=== PATIENT | male | born 1940 | race Caucasian/White ===

== ENCOUNTER 2019-03-07 09:12 | Inpatient (IN) ==
[2019-03-07 09:56] LABS: BASO# 0.05 X1000 (0.0-0.2); BASO% 0.1 % (0.0-0.8); EOS# 0.01 X1000 (0.0-0.7); HEMOGLOBIN 18.5 g/dL (14.0-18.0); IMM GRAN# 0.12 X1000 (0.0-0.04); IMM GRAN% 0.3 % (0.0-0.5); LYMPH# 24.32 X1000 (1.2-3.4); MCV 93.8 FL (81-99); MONO# 1.62 X1000 (0.11-0.59); MONO% 4.5 % (1.7-9.3); MPV 10.6 FL (7.4-10.4); NEUT# 9.63 X1000 (1.4-6.5); NEUT% 27.1 % (42.2-75.2); PLT 283 X1000 (130-400); RBC 5.97 XMIL (4.7-6.1); RDW 14.5 % (11.5-14.5); WBC 35.75 X1000 (4.8-10.8)
[2019-03-07 10:38] LABS: BANDS 1 % (0-1); LYMPHS 76 % (21-51); MONO 2 % (1-9); SEGS 21 % (42-75)
[2019-03-07 10:49] LABS: INR 1.03; PROTIME 13.6 Seconds (11.0-16.0)
[2019-03-07 10:50] LABS: PTT 25.6 Seconds (22.3-41.8)
[2019-03-07 10:53] LABS: ALB/GLOB RATIO 1.6; ALBUMIN 4.4 g/dL (3.5-5.0); CALCIUM 10.4 mg/dL (8.8-10.2); CREATININE 2.5 mg/dL (0.7-1.2); POTASSIUM 4.4 mmol/L (3.5-5.1); TOTAL BILIRUBIN 0.54 mg/dL (0.20-1.00); TOTAL PROTEIN 7.1 g/dL (6.3-8.3)
[2019-03-07] MEDS ORDERED: NS 1,000 ML IV ONE ×2 (10:58→12:06)
[2019-03-07] MEDS ORDERED: ZOFRAN IV ONE (10:59)
--- NOTE | 2019-03-07 11:40 | Diag Imaging Result Doc PS360 ---
CT ABDOMEN/PELVIS W/O CONTRAST - 03/07/2019 INDICATION: Abdominal Pain and Constipation COMPARISON: None FINDINGS: There is mild interstitial fibrosis in the peripheral lung bases. No infiltrates. Heart size is normal with no pericardial effusion. There is severe fluid distention of the stomach and much of the proximal small bowel. The distal small bowel is completely collapsed. There is a small amount of stool in the colon but the colon is otherwise completely collapsed. There is significant small bowel lateral to the left colon which may suggest an internal hernia. However the transition point of the bowel obstruction is not clear. Probably the transition point stone in the pelvis. No free air or free fluid. There has been previous prostate resection. There are also surgical suture lines of the rectum. Urinary bladder and rectum are normal. There is a small left renal cyst. There is a soft tissue density nodule left adrenal gland measuring 1.5 cm. Otherwise abdominal organs are normal. There is moderate dextro scoliosis of the spine. There are moderate degenerative changes of the spine. No acute or suspicious bony lesion. IMPRESSION: 1. High-grade small bowel obstruction distally, likely in the pelvis. 2. Abnormal position of small bowel loops in the lateral left abdomen. There may be an internal hernia here. Surgical consultation is recommended. 3. Small nonspecific left adrenal gland nodule of doubtful significance. This exam was performed using automated exposure control, adjustment of mA or kV according to patient size, and/or use of iterative reconstruction technique Electronically signed by Preet Hanna 03/07/2019 11:38 AM
[2019-03-07] MEDS ORDERED: CIPRO 400 MG/D5W 400 MG/200 ML IVPB IV ONE (12:04)
--- NOTE | 2019-03-07 12:09 | PROVIDER DOCUMENTATION ---
This chart was entered by Shanon Cabrera Scribe, acting as scribe for Shubham Rivas MD. HPI-General Adult - General Chief Complaint: Abdominal Pain Stated Complaint: ABD PAIN,VOMITING,POSS DEHYDRATED,CONSTIPATED Time Seen by Provider: 03/07/19 09:57 Source: patient, family Allergies/Adverse Reactions: Patient Allergies Allergy/AdvReac Type Severity Reaction Status Date / Time lorazepam [From Ativan] Allergy Unknown Verified 03/07/19 11:41 Penicillins Allergy RASH Verified 03/07/19 11:41 - History of Present Illness -Gen Adult Nature of Presenting Problems: Patient is an 78 y/o male presenting to the ED today c/o abdominal pain, vomiting, and constipation. Patient reports onset of abdominal pain last Thursday night. Patient reports abdominal pain persisted and on Thursday he saw his PCP who he states gave him "a bunch of medicines". Patient reports he was diagnosed with H. pylori at that time. Patient reports on Thursday he also had onset of acid reflux. Patient states on Thursday he began to experience vomiting. Patient reports his last bowel movement was on Thursday so he used an enema on Thursday and Thursday with minimal output. Patient states he has continued to have vomiting whenever he tries to eat and notes he has been having coffee ground emesis. Patient reports his abdominal pain is improved at this time, but he continues to experience constipation, vomiting, and acid reflux. Patient reports he last lost 5-6 lbs in the last week. 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 Patient had a peptic ulcer in 1962 but otherwise denies PUD. Patient reports his last colonoscopy was within the last 2 years and was normal. Patient denies history of constipation but states he has had intermittent diarrhea. Patient reports in 2008, his colon ruptured and he had a colostomy which was shortly after reversed. Patient reports he also has chronic leukemia. Patient reports having multiple prior hernia repairs. Patient denies fever, SOB, or blood in stool. Patient denies all other signs/symptoms. Location of Pain/Injury: reports: abdomen Pain Radiation: reports: no radiation Quality of Pain: reports: fullness Onset/Duration: reports: 6 days ago Timing: reports: improving Modifying Factors: worse with: eating Associated Symptoms: reports: constipation, heartburn, vomiting. denies: diarrhea, fever/chills, shortness of breath Similar Symptoms Previously?: No Recently seen or treated by another doctor?: Yes (Tx by PCP Thursday) Review of Systems - Adult - REVIEW OF SYSTEMS - ADULT Constitutional: denies: fever Eyes: reports: no symptoms reported. denies: eye pain Ears, Nose, Mouth & Throat: reports: no symptoms reported. denies: throat pain Cardiovascular: reports: no symptoms reported. denies: chest pain Respiratory: reports: no symptoms reported. denies: shortness of breath Gastrointestinal: reports: abdominal pain, hematemesis, constipation, frequent heartburn, nausea, vomiting. denies: diarrhea, rectal bleeding Genitourinary: reports: no symptoms reported Musculoskeletal: reports: no symptoms reported Integumentary: reports: no symptoms reported Neurological: reports: no symptoms reported. denies: headache/migraines Psychiatric: reports: no symptoms reported. denies: alcohol/drug dependence Endocrine: reports: no symptoms reported Hematologic/Lymphatic: reports: no symptoms reported, other (Leukemia) Allergic/Immunologic: reports: no symptoms reported Past History - Adult - PAST MEDICAL HISTORY-ADULT Review of Records: reports: Old Records Reviewed (no records noted) Major Childhood Illnesses: reports: denies history Cardiovascular: reports: denies history Respiratory: reports: denies history Gastrointestinal: reports: other (peptic ulcer - 1962; colon ruptur 2008) Genitourinary: reports: denies history Musculoskeletal: reports: denies history Neurological: reports: denies history Psychiatric: reports: denies history Endocrine/Immune: reports: Leukemia Other Conditions: reports: denies history - PRIOR SURGERIES/PROCEDURES Surgical/Procedure History: reports: hernia repair, bowel surgery (colostomy with later reversal) - FAMILY HISTORY Family History: reviewed, not pertinent - SOCIAL HISTORY Smoking: denies Substance Use: none/never Alcohol Use Frequency: never Physical Exam-General - PHYSICAL EXAM-ADULT Initial Vital Signs Reviewed: Yes - CONSTITUTIONAL General Appearance: appears well, alert, no apparent distress - EYES Eyes: negative: conjuctival exudate, sclera injected, scleral icterus, subconjunctival hemorrhage - HEAD, EARS, NOSE, MOUTH & THROAT HENMT: normocephalic/atraumatic, moist mucous membranes, pharynx normal - NECK Neck: non-tender, supple, normal inspection - RESPIRATORY Respiratory: normal breath sounds, no respiratory distress, no accessory muscle use - CARDIOVASCULAR Cardiovascular: no edema, no gallop, no murmur, tachycardia - GASTROINTESTINAL (ABDOMEN) Abdominal Exam: abnormal bowel sounds (hypoactive), rigid, tenderness (RLQ) - MUSCULOSKELETAL Extremity: normal range of motion (LE), normal inspection, no pedal edema - SKIN Integumentary: normal color, warm/dry - NEUROLOGIC Neurologic: grossly normal - PSYCHIATRIC Psych/Mental Status: normal mood/affect, normal thought content, normal thought process Progress - PLAN OF CARE/RESULTS Progress/Plan/Lab Results: Vital Signs - 8 hr 03/07/19 09:20 Temperature 97.5 F L Pulse Rate 111 H Respiratory Rate 18 Blood Pressure 103/70 O2 Sat by Pulse Oximetry 97 Laboratory Results - last 24 hr 03/07/19 09:39 WBC 35.75 H RBC 5.97 Hgb 18.5 H Hct 56.0 H MCV 93.8 MCH 31.0 MCHC 33.0 RDW Std Deviation 14.5 Plt Count 283 MPV 10.6 H Immature Gran % (Auto) 0.3 Neut % (Auto) 27.1 L Lymph % (Auto) 68.0 H [place] % (Auto) 4.5 Eos % (Auto) 0.0 Baso % (Auto) 0.1 Immature Gran # (Auto) 0.12 H Neut # (Auto) 9.63 H Lymph # (Auto) 24.32 H [place] # (Auto) 1.62 H Eos # (Auto) 0.01 Baso # (Auto) 0.05 Orders Category Date Time Status NPO Diet 03/07/19 09:27 Active CBC WITH DIFF [HEME] Stat Lab 03/07/19 09:39 Results COMPREHENSIVE METABOLIC PANEL [CHEM] Stat Lab 03/07/19 09:39 Received LIPASE [CHEM] Stat Lab 03/07/19 09:39 Received URINALYSIS [URINALYSIS] Stat Lab 03/07/19 09:28 Uncollected Abd Pain/OB <20 weeks Stat Oth 03/07/19 09:27 Ordered Result Diagrams: 03/07/19 09:39 03/07/19 09:39 - REASSESSMENT Reassessment #1 Status: other (Discussed SBO with patient and family. Discussed with surgery who would like the pt admitted to hospitalist team and he will see the patient. Disucssed case with the hospitalist team who has accepted the patient.) - CT/MRI 1 CT Study: Abdomen Impression: See EMR Report (CT ABDOMEN/PELVIS W/O CONTRAST - 03/07/2019 INDICATION: Abdominal Pain and Constipation COMPARISON: None FINDINGS: There is mild interstitial fibrosis in the peripheral lung bases. No infiltrates. Heart size is normal with no pericardial effusion. There is severe fluid distention of the stomach and much of the proximal small bowel. The distal small bowel is completely collapsed. There is a small amount of stool in the colon bu t the colon is otherwise completely collapsed. There is significant small bowel lateral to the left colon which may suggest an internal hernia. However the transition point of the bowel obstruction is not clear. Probably the transition point stone in the pelvis. No free air or free fluid. There has been previous prostate resection. There are also surgical suture lines of the rectum. Urinary bladder and rectum are normal. There is a small left renal cyst. There is a soft tissue density nodule left adrenal gland measuring 1.5 cm. Otherwise abdominal organs are normal. There is moderate dextro scoliosis of the spine. There are moderate degenerative changes of the spine. No acute or suspicious bony lesion. IMPRESSION: 1. High-grade small bowel obstruction distally, likely in the pelvis. 2. Abnormal position of small bowel loops in the lateral left abdomen. There may be an internal hernia here. Surgical consultation is recommended. 3. Small nonspecific left adrenal gland nodule of doubtful significance. This exam was performed using automated exposure control, adjustment of mA or kV according to patient size, and/or use of iterative reconstruction technique Electronically signed by Preet Hanna 03/07/2019 11:38 AM 03/07/19 1138 Interpreting Physician: Preet Hanna MD Dictated Date/Time: 03/07/19 1134 cc: Shubham Rivas MD; Yogesh Weber MD) Departure - Departure Date of Disposition Decision: 03/07/19 Time of Disposition Decision: 12:07 DIAGNOSIS: Small bowel obstruction Disposition: ADMITTED INPATIENT 09 Certified Medical Emergency: Emergent Condition: Fair Referrals and Follow-Ups: Yogesh Weber MD [Primary Care Provider] - - Critical Care Note This patient required my direct & personal management of CC.: No Attestation - Physician/ EDWAR Attestation Patient care was provided by Advanced Practice Provider:: No The physician spent face to face time with patient:: Yes Advanced Practice Provider documentation review:: Supervising physician onsite and consulted in the evaluation and care of this patient. The physician did have a face to face encounter with the patient. This chart was documented by the indicated scribe, (Shanon Cabrera Scribe) and accurately reflects the services I performed and decisions made by me, Shubham Rivas MD, as attested by the provider's signature.
--- NOTE | 2019-03-07 12:31 | Diag Imaging Result Doc PS360 ---
CHEST-1 VIEW - 03/07/2019 INDICATION: sepsis protocol with c/o diarrhea COMPARISON: None FINDINGS: The lungs are normally expanded and clear. Heart size and mediastinal contours are normal. No pneumothorax or pleural effusion. IMPRESSION: Negative exam. Electronically signed by Preet Hanna 03/07/2019 12:29 PM
[2019-03-07] MEDS ORDERED: PROTONIX IV SCH (12:45)
[2019-03-07] MEDS ORDERED: NS 1,000 ML IV SCH ×2 (12:45→16:00)
[2019-03-07] MEDS ORDERED: SODIUM CHLORIDE 0.9% INJ SCH (12:45)
--- NOTE | 2019-03-07 13:36 | HISTORY AND PHYSICAL ---
PRIMARY CARE PHYSICIAN: Dr. Weber. CHIEF COMPLAINT: Abdominal pain, constipation and vomiting. HISTORY OF PRESENTING ILLNESS: This is an 78-year-old male who presents to [facility] with complaints of abdominal pain, vomiting, and constipation. States the abdominal pain began last Thursday night and was persistent and on Thursday he went to see his primary care physician who gave him "a bunch of medicines" states he was also diagnosed with H pylori at that time, had a sudden onset of acid reflux and then on Thursday began experiencing vomiting. States his last bowel movement was on Thursday and he used an enema on Thursday and Thursday with minimal output. Continued to vomit whenever he would eat and also noted some coffee-grounds emesis. States at this time his abdominal pain is improved but continues to experience constipation, vomiting and acid reflux. Reports that he has lost 5 to 6 pounds in the last week. He has had a history of leukemia. His last colonoscopy was about 2 years ago and it was normal. He denied any history of constipation but states he has had intermittent diarrhea. States that in 2008 his colon ruptured and he had to have a colostomy placed but was shortly reversed. His workup in the emergency room showed his white blood cell count to be 35.75, his BUN 45 with a creatinine of 2.5 no previous to compare, lipase of 279, plasma lactate of 5.4. We did a CT of the abdomen and pelvis that showed a high- grade small bowel obstruction distally likely in the pelvis, some abnormal position of the small bowel loops in the lateral left abdomen so he will be admitted for further evaluation and treatment. PAST MEDICAL HISTORY: Of peptic ulcers and leukemia. PAST SURGICAL HISTORY: Hernia repair and a colostomy placement and reversal. FAMILY HISTORY: Reviewed and noncontributory. SOCIAL HISTORY: Currently lives with family. Denies any tobacco, alcohol or illicit drug use. ALLERGIES: To lorazepam and penicillin. HOME MEDICATIONS: None listed at this time. LABORATORY DATA: Showed a white blood cell count of 35.75, hemoglobin 18.5, hematocrit 56, platelets 283,000, PT and INR of 13.6 and 1.03. Sodium 139, potassium 4.4, chloride 86, CO2 32, BUN of 45, creatinine 2.5, glucose 172. Cardiac enzyme was negative. Lipase was 279. Plasma lactate of 5.4. CT of the abdomen and pelvis showed a high-grade small bowel obstruction distally likely in the pelvis, abnormal position of small bowel loops in the lateral left abdomen, there may be an internal hernia here and surgical consultation is recommended. Chest x-ray is pending. REVIEW OF SYSTEMS: He denied any fever, chills, blurred vision, dizziness, chest pain, coughing, shortness of breath. He has had nausea, vomiting, diarrhea, constipation and abdominal pain. PHYSICAL EXAMINATION: On arrival he had a temperature of 97.5 degrees, pulse 111, respirations 18, blood pressure 103/70, saturating 97% on room air. GENERAL: This is a 78-year-old male who is lying in the bed and answers questions appropriately. HEENT: Normocephalic, atraumatic. Normal ENT inspection. Oropharynx and nares are clear. Pupils are equal, round, reactive to light, accommodation. Extraocular movements are intact. NECK: Normal inspection, normal range of motion. LUNGS: Clear to auscultation bilaterally with equal lung expansion and chest wall movement. HEART: With regular rate and rhythm. No murmurs, rubs, or gallops. ABDOMEN: Firm, distended. Bowel sounds are hypoactive x4 quadrants. MUSCULOSKELETAL: He had 5/5 strength x4 extremities. NEUROLOGICAL: The cranial nerves 2-12 appear grossly intact. ASSESSMENT: 1. Nausea, vomiting. 2. Small bowel obstruction. 3. Acute kidney injury. 4. Gastroesophageal reflux disease. PLAN: He will be admitted to the surgical unit placed on telemetry. We are going to place an NG tube to low intermittent suction, hold NPO, consult Surgery. Will check a urinalysis. Recheck a BMP and a CMP in the a.m. Place him on normal saline at 125 mL an hour, Zofran 4 mg IV q.4 hours p.r.n., morphine 2 mg IV q.3 hours p.r.n., will give him Protonix 40 mg IV q.12 hours and further orders after seen by attending and by websphere commerce consultant. Dictated by MORIS Stanley for Claire Martins MD cc: MORIS Stanley MD Dr. Gillespie I performed a face to face encounter on the patient. I reviewed all labs and imaging on the patient. I agree with the H&P as dictated. MTDD
--- NOTE | 2019-03-07 15:13 | SEPSIS: TISSUE PERFUSION ASSMT ---
Sepsis: Tissue Perfusion Assmt - Physical Exam Assessment Date: 03/07/19 Time Assessment Initialized: 15:15 Vital Signs: Last Vital Signs Temp 98.6 F 03/07/19 14:56 Pulse 68 03/07/19 14:56 Resp 14 03/07/19 14:56 BP 139/89 03/07/19 14:56 Pulse Ox 98 03/07/19 14:56 Height 6 ft 1 in Weight 159 lb Lung Sounds:: lungs clear Heart Sounds:: Regular Peripheral Pulse Evaluation:: radial (R): 2+, radial (L): 2+, dorsalis-pedis (R): 2+, dorsalis-pedis (L): 2+, posterior tibialis (R): 2+, posterior tibialis (L): 2+ Skin Exam:: pink - Impression Impression:: Tissue Perfusion Adequate - Plan Plan:: No Change
--- NOTE | 2019-03-07 16:07 | Diag Imaging Result Doc PS360 ---
EXAM: CHEST-PORTABLE - 03/07/2019 HISTORY: NG tube placement TECHNIQUE: Portable exam for nasogastric tube placement COMPARISON: None. FINDINGS: The tip of the nasogastric tube is at the expected location of the proximal stomach near the gastroesophageal junction. IMPRESSION: Tip of nasogastric tube at proximal stomach. The tube should be advanced several centimeters for more optimal positioning. Electronically signed by Toni Caldera 03/07/2019 4:05 PM
[2019-03-07] MEDS: ZYVOX 600 MG/D5W 600 MG/300 ML IVPB IV SCH (16:09)
[2019-03-07] MEDS: ZOFRAN IV PRN (16:09)
[2019-03-07 17:17] LABS: HEMOGLOBIN A1C 5.5 % (4.8-6.0)
[2019-03-07 17:23] LABS: CREATININE 2.1 mg/dL (0.7-1.2); PHOSPHORUS 2.9 mg/dL (2.7-4.5); POTASSIUM 3.4 mmol/L (3.5-5.1)
[2019-03-07 17:46] LABS: BASO# 0.05 X1000 (0.0-0.2); BASO% 0.2 % (0.0-0.8); EOS# 0.05 X1000 (0.0-0.7); EOS% 0.2 % (0.0-10.0); HEMOGLOBIN 16.4 g/dL (14.0-18.0); IMM GRAN# 0.09 X1000 (0.0-0.04); IMM GRAN% 0.3 % (0.0-0.5); LYMPH# 21.94 X1000 (1.2-3.4); MCH 31.1 PG (27-31); MCHC 33.5 g/dL (33-37); MONO% 4.3 % (1.7-9.3); MPV 10.7 FL (7.4-10.4); NEUT# 8.73 X1000 (1.4-6.5); PLT 222 X1000 (130-400); RBC 5.27 XMIL (4.7-6.1); RDW 14.5 % (11.5-14.5); WBC 32.26 X1000 (4.8-10.8)
[2019-03-07 19:20] LABS: URINE SOURCE CLEAN CATCH
[2019-03-07 19:22] LABS: BILIRUBIN URINE NEGATIVE (NEGATIVE); BLOOD URINE TRACE (NEGATIVE); COLOR ORANGE; GLUCOSE URINE NEGATIVE (NEGATIVE); KETONE URINE TRACE mg/dL (NEGATIVE); LEUKOCYTES URINE NEGATIVE (NEGATIVE); NITRITE URINE NEGATIVE (NEGATIVE); PH URINE 7.5; PROTEIN URINE 100 mg/dL (NEGATIVE); SP GRAVITY URINE 1.029; TURBIDITY URINE HAZY (CLEAR); UROBILINOGEN URINE NORMAL (NORMAL)
[2019-03-07 19:34] LABS: LYMPHS 49 % (21-51); MONO 3 % (1-9); SEGS 48 % (42-75)
[2019-03-07 19:34] LABS: UR EPITHELIAL CELLS >10 /HPF (<10); URINE BACTERIA NEGATIVE /HPF; URINE RBC <10 /HPF (<10); URINE WBC <10 /HPF (<10)
[2019-03-07 19:39] LABS: URINE CASTS GRANULAR PRESENT; URINE SMALL ROUND CELLS RENAL PRESENT
[2019-03-07 19:40] LABS: UR PROT RANDOM 62.6 mg/dL
[2019-03-07 19:44] LABS: UR CREAT RANDOM 323.8 mg/dL (14-26)
[2019-03-07] MEDS ORDERED: POTASSIUM CHLORIDE 20 MEQ/SWI 20 MEQ/100 ML IVPB IV SCH (20:00)
[2019-03-07] MEDS: AZACTAM 0.5 GM in NS 50 ML IV SCH (20:20)
[2019-03-07] MEDS: HEPARIN SUBQ SCH (20:20)
[2019-03-07] MEDS: MORPHINE IV PRN (21:42)
--- NOTE | 2019-03-07 22:42 | GENERAL SURGERY CONSULTATION ---
DATE: 03/07/2019 REQUESTING PHYSICIAN: The hospitalist. REASON FOR CONSULTATION: Bowel obstruction. HISTORY OF PRESENT ILLNESS: An 78-year-old gentleman admitting with abdominal pain who presented to the emergency department with complaints of lack of bowel movement since Thursday the week prior. He has been treated with [id number] medications but had not improved. He says significant past surgical history with multiple abdominal operations. He was seen emergency department initially had a plasma lactate of 5.4. The resuscitation process was undertaken. He had a CT scan that showed high-grade small-bowel obstruction. I was asked to weigh an opinion. The patient has had several L out since they placed his NG tube but is feeling better. PAST MEDICAL HISTORY: Includes multiple hernia repairs, colostomy placement after colon rupture and reversal. PAST MEDICAL HISTORY: Peptic ulcer disease and history of leukemia. FAMILY HISTORY: Reviewed with patient, noncontributory. SOCIAL HISTORY: Current lives family. Denies alcohol, tobacco, or illicit drugs. ALLERGIES: Lorazepam and penicillin. HOME MEDICATIONS: Current MAR reviewed. REVIEW OF SYSTEMS: Full 14 systems reviewed and negative as specified in HPI. PHYSICAL EXAMINATION: Vital Signs: The patient is currently afebrile. His vital signs stable. General: No acute distress. HEENT: Normocephalic, atraumatic. Pupils equal, round, reactive to light. Mucous membranes moist. Oropharynx benign. Neck: Supple. Trachea midline. Cardiovascular: Regular rate and rhythm. Lungs: Grossly clear. Abdomen: Soft. Some hypoactive bowel sounds. No peritoneal signs. Extremities: Moves all extremities. Neurologic: Grossly intact. Skin: No signs of jaundice. Vascular: All extremities perfused. LABORATORY: White blood count 35, hematocrit 56, platelet count 283,000. Remainder of labs reviewed. CT scan independently reviewed and radiology report reviewed. ASSESSMENT AND PLAN: An 78-year-old gentleman with a bowel obstruction. Bowel obstruction. At this time, the patient seems to make some improvement when with the NG tube. Hopefully, this will continue. Hopefully, we can treat him nonoperatively. He has a significant surgical history, so I suspect this is mostly related to adhesions. We will continue to monitor him. cc: Kev Vogel MD
[2019-03-07] MEDS ORDERED: POTASSIUM CHLORIDE 30 MEQ in NS 1,000 ML IV SCH (23:45)
[2019-03-08] MEDS: AZACTAM 0.5 GM in NS 50 ML IV SCH ×3 (04:25→20:47)
[2019-03-08] MEDS: ZYVOX 600 MG/D5W 600 MG/300 ML IVPB IV SCH ×2 (05:03→15:16)
[2019-03-08] MEDS: PROTONIX IV SCH (06:28)
[2019-03-08] MEDS: SODIUM CHLORIDE 0.9% INJ PRN (06:29)
[2019-03-08] MEDS: SYNTHROID IV SCH (06:29)
[2019-03-08] MEDS: SODIUM CHLORIDE 0.9% INJ SCH (06:29)
--- NOTE | 2019-03-08 06:55 | Diag Imaging Result Doc PS360 ---
ABDOMEN FLAT/UPRIGHT - 03/08/2019 INDICATION: obstruction COMPARISON: None FINDINGS: There is a nonobstructive bowel gas pattern. No free air or abdominal calcifications. There are surgical clips and suture lines in the pelvic soft tissues. IMPRESSION: No acute disease. Electronically signed by Preet Hanna 03/08/2019 6:52 AM
[2019-03-08 08:33] LABS: BASO# 0.04 X1000 (0.0-0.2); BASO% 0.1 % (0.0-0.8); EOS# 0.13 X1000 (0.0-0.7); EOS% 0.4 % (0.0-10.0); HEMOGLOBIN 15.6 g/dL (14.0-18.0); IMM GRAN# 0.11 X1000 (0.0-0.04); IMM GRAN% 0.4 % (0.0-0.5); LYMPH# 19.95 X1000 (1.2-3.4); LYMPH% 66.7 % (20.5-51.1); MCH 31.2 PG (27-31); MCHC 32.5 g/dL (33-37); MONO# 1.17 X1000 (0.11-0.59); MONO% 3.9 % (1.7-9.3); MPV 10.9 FL (7.4-10.4); NEUT# 8.51 X1000 (1.4-6.5); NEUT% 28.5 % (42.2-75.2); PLT 200 X1000 (130-400); RDW 14.9 % (11.5-14.5); WBC 29.91 X1000 (4.8-10.8)
[2019-03-08 08:42] LABS: MAGNESIUM 2.6 mg/dL (1.5-2.7); PHOSPHORUS 4.6 mg/dL (2.7-4.5)
[2019-03-08 08:50] LABS: CALCIUM 8.9 mg/dL (8.8-10.2); CREATININE 1.8 mg/dL (0.7-1.2); POTASSIUM 3.6 mmol/L (3.5-5.1)
[2019-03-08 09:00] LABS: BANDS 2 % (0-1); LYMPHS 56 % (21-51); MONO 2 % (1-9); SEGS 34 % (42-75)
[2019-03-08] MEDS: HEPARIN SUBQ SCH ×2 (11:09→20:46)
--- NOTE | 2019-03-08 13:14 | GENERAL SURGERY PROGRESS NOTE ---
DATE: 03/08/2019 SUBJECTIVE: Patient says he is feeling better. He has gotten 2 L off his stomach with the NG tube. OBJECTIVE: Vital Signs: Patient is currently afebrile. His vital signs are stable. General: No acute distress. HEENT: Normocephalic, atraumatic. Pupils equal, round, reactive to light. Mucous membranes moist. Oropharynx benign. Neck: Supple trachea midline. Cardiovascular: Regular rate and rhythm with some mild tachycardia. Lungs: Grossly clear. Abdomen: Soft, nondistended, nontender. Extremities: Moves all extremities. Neurologic: Grossly intact. Skin: No signs of jaundice. Vascular: All extremities perfused. LABORATORY: None this morning. Abdominal film, no official report, but looks like a nonspecific gas pattern to me. ASSESSMENT AND PLAN: 78-year-old with a bowel obstruction: Bowel obstruction. At this time, I think it is improving. We will follow up with the official read from a.m. check of chest x-ray and abdominal film, but at this point, we will keep the nasogastric tube in place until he has definitive return of bowel function. cc: Kev Vogel MD
[2019-03-08] MEDS ORDERED: POTASSIUM CHLORIDE 20 MEQ/SWI 20 MEQ/100 ML IVPB IV SCH (22:00)
[2019-03-08] MEDS: NS 1,000 ML IV SCH (22:11)
[2019-03-08] MEDS: ZOFRAN IV PRN (22:11)
[2019-03-08] MEDS: MORPHINE IV PRN (22:12)
--- NOTE | 2019-03-09 03:52 | PROGRESS NOTE ---
DATE: 03/08/2019 INTERVAL HISTORY: No acute events overnight. His NG tube had put out about 2 L urine yesterday, 1.5 L so far today. He is feeling much better. Denies chest pain, shortness of breath, cough. We had a discussion about etiology of small bowel obstruction, getting him back on intravenous fluids, acute kidney injury. I answered all of his questions. OBJECTIVE: Vital signs: Temperature 98.7 degrees, pulse 99, respiratory rate 16, blood pressure 140/76, saturating 96% on room air. General: No acute distress. HEENT: Oral cavity is moist. Lungs: No wheeze, rhonchi, crackles. Cardiovascular: S1 normal. No murmur or gallop. Abdomen: Soft, nontender. No bowel sounds. He has nasogastric tube under suction. Extremities: No lower extremity edema. Neurologic: He is alert and oriented x3. LABS: Suggestive of persistent leukocytosis. He does have acute kidney injury with fractional excretion of sodium less than 1%. Abdominal x-ray suggests resolution of abdominal small-bowel obstruction. ASSESSMENT AND PLAN: 1. Acute small-bowel obstruction with previous history of colectomy because of colon perforation in 2008. This is likely adhesive small-bowel obstruction. He did have lactic acidosis on presentation. He though improved with nonoperative management. He has not had any bowel sounds or gas at the moment. I will continue him on intravenous fluids, nasogastric tube under suction and intravenous antibiotics. Surgical team on board. 2. Kidney dysfunction, likely acute kidney injury. Fractional excretion of sodium suggests prerenal etiology. His nausea, vomiting, poor oral intake could have contributed to it. Continue intravenous fluids. Follow up with daily BMP. He had burning with IV potassium yesterday, so I will check his potassium tomorrow to see if he would really need IV potassium. I will consider discontinuing Mariano catheter. 3. Leukocytosis. He was diagnosed with chronic lymphocytic leukemia and his baseline WBC count has been in 20,000. His current leukocytosis could be related to his chronic lymphocytic leukemia. However, I would keep him on IV antibiotics since he had high-grade likely suspected mechanical small-bowel obstruction on presentation with lactic acidosis. 4. Recently diagnosed of H. pylori infection. He was supposed to be on pantoprazole, metronidazole, doxycycline, which I will resume once his small-bowel obstruction improves. 5. Left upper extremity chronic Staphylococcus infection. He was at home, supposed to be on levofloxacin and rifampin, which I will eventually resume once his H pylori treatment has been completed. 6. Disposition: I will monitor patient inside the hospital as I await small-bowel obstruction resolution. Plan of care discussed with the patient and his family at bedside. All their questions have been answered. cc: Garry Castanon MD
[2019-03-09] MEDS: AZACTAM 0.5 GM in NS 50 ML IV SCH ×3 (04:17→20:18)
[2019-03-09] MEDS: ZYVOX 600 MG/D5W 600 MG/300 ML IVPB IV SCH ×2 (04:18→17:19)
[2019-03-09] MEDS: PROTONIX IV SCH (06:50)
[2019-03-09] MEDS: SODIUM CHLORIDE 0.9% INJ PRN (06:50)
[2019-03-09] MEDS: SODIUM CHLORIDE 0.9% INJ SCH (06:50)
[2019-03-09] MEDS: SYNTHROID IV SCH (06:51)
[2019-03-09 07:21] LABS: BASO# 0.06 X1000 (0.0-0.2); BASO% 0.2 % (0.0-0.8); EOS# 0.21 X1000 (0.0-0.7); EOS% 0.8 % (0.0-10.0); HEMATOCRIT 51.3 % (42.0-52.0); HEMOGLOBIN 16.4 g/dL (14.0-18.0); IMM GRAN# 0.06 X1000 (0.0-0.04); IMM GRAN% 0.2 % (0.0-0.5); LYMPH# 18.04 X1000 (1.2-3.4); MCH 31.1 PG (27-31); MCV 97.2 FL (81-99); MONO# 1.03 X1000 (0.11-0.59); MONO% 3.9 % (1.7-9.3); MPV 10.4 FL (7.4-10.4); NEUT# 7.11 X1000 (1.4-6.5); NEUT% 26.9 % (42.2-75.2); PLT 192 X1000 (130-400); RBC 5.28 XMIL (4.7-6.1); RDW 14.7 % (11.5-14.5); WBC 26.51 X1000 (4.8-10.8)
[2019-03-09 08:14] LABS: POTASSIUM 3.5 mmol/L (3.5-5.1); SODIUM 141 mmol/L (136-145)
[2019-03-09 08:15] LABS: AGAP 11; BUN 32 mg/dL (8-22); CALCIUM 9.3 mg/dL (8.8-10.2); CHLORIDE 95 mmol/L (98-107); COSMO 290; CREATININE 1.3 mg/dL (0.7-1.2); GLUCOSE 123 mg/dL (70-104); MAGNESIUM 2.5 mg/dL (1.5-2.7); TCO2 35 mmol/L (25-35)
[2019-03-09] MEDS: HEPARIN SUBQ SCH ×2 (09:00→20:18)
--- NOTE | 2019-03-09 10:42 | GENERAL SURGERY PROGRESS NOTE ---
DATE: 03/09/2019 SUBJECTIVE: The patient seems to be doing okay. He had a small bowel movement but he still having significant NG tube output, although he feels better. OBJECTIVE: Vital Signs: Patient is currently afebrile. His vital signs are stable. General: No acute distress. HEENT: Normocephalic, atraumatic. Pupils equal, round, reactive to light. Mucous membranes moist. Oropharynx benign. Neck: Supple. Trachea midline. Cardiovascular: Regular rate and rhythm. Lungs: Grossly clear. Abdomen: Soft, less distended, nontender. Extremities: Moves all extremities. Neurologic: Grossly intact. Skin: No signs of jaundice. Vascular: All extremities perfused. LABORATORY DATA: Reviewed from yesterday. White blood cell count is still elevated to 29. Remainder of labs reviewed. ASSESSMENT AND PLAN: An 78-year-old gentleman with a small-bowel obstruction. Small-bowel obstruction. At this time, it seems to be improving, but his NG tube output still is high. We will keep the NG tube in place. He does have baseline leukemia and I think this is contributing to his leukocytosis, but we will continue to monitor him. cc: Kev Vogel MD
[2019-03-09] MEDS: NS 1,000 ML IV SCH (17:22)
--- NOTE | 2019-03-09 21:47 | PROGRESS NOTE ---
DATE: 03/09/2019 INTERVAL HISTORY: No acute events overnight. SUBJECTIVE: He states he was able to walk up to the end of the hallway and come back. He does not have any nausea or vomiting. His abdominal discomfort is significantly better. He is still not passing gas. Nasogastric tube output has been 2.2 L over last 24 hours and 500 mL during this shift. VITAL SIGNS: Temperature 98 degrees, pulse 94, respiratory rate 18, blood pressure 148/84, saturating 95% in room air. PHYSICAL EXAMINATION: General: Not in acute distress. Oral cavity: Moist. Lungs: Air entry bilaterally equal. No wheezing or crackles. Heart: S1, S2 normal. No murmur or gallop. Abdomen: Soft, nontender. No bowel sounds. Extremities: No lower extremity edema. Neurologic: He is alert and oriented x3. LABS: Suggestive of improving leukocytosis, normal hemoglobin, and normal platelet count. Normal electrolytes. His BUN and creatinine have been improving. MICROBIOLOGY: No positive data. No new imaging. ASSESSMENT: 1. Acute small bowel obstruction with previous history of colectomy for colon perforation in 2008. 2. Kidney dysfunction, likely acute kidney injury due to intravascular volume depletion. 3. 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 4. Recently diagnosed Helicobacter pylori infection. 5. Left upper extremity chronic staphylococcus infection. PLAN: His small bowel obstruction is better, though he has not had resumption of bowel function, and he is still putting out a high amount of nasogastric tube output. I will continue him on intravenous fluid, n.p.o. status, and appreciate Surgery recommendation about starting on a liquid diet in the next 24 hours or so. Considering his culture data are negative, I will stop the intravenous antibiotics. I will resume his home antibiotics for Helicobacter pylori and staphylococcus suppressive therapy for staphylococcus wound infection of left upper extremity in the future. I encouraged him to perform physical activity and walk in the hallway. He agreed. cc: Garry Castanon MD
[2019-03-10] MEDS: PROTONIX IV SCH (06:36)
[2019-03-10] MEDS: SYNTHROID IV SCH (06:37)
[2019-03-10] MEDS: SODIUM CHLORIDE 0.9% INJ PRN (06:38)
[2019-03-10] MEDS: NS 1,000 ML IV SCH (07:35)
[2019-03-10 07:40] LABS: AGAP 15; BUN 30 mg/dL (8-22); CALCIUM 8.9 mg/dL (8.8-10.2); CHLORIDE 97 mmol/L (98-107); COSMO 290; ESTIMATED GFR > 60; GLUCOSE 80 mg/dL (70-104); POTASSIUM 3.4 mmol/L (3.5-5.1); SODIUM 143 mmol/L (136-145); TCO2 31 mmol/L (25-35)
[2019-03-10] MEDS: HEPARIN SUBQ SCH ×3 (09:22→23:06)
--- NOTE | 2019-03-10 10:45 | GENERAL SURGERY PROGRESS NOTE ---
DATE: 03/10/2019 SUBJECTIVE: Patient seems to be doing okay. He says he really has not passed much gas. His NG tube output has decreased. OBJECTIVE: Vital Signs: The patient is currently afebrile. His vital signs are stable. General Examination: No acute distress. HEENT: Normocephalic, atraumatic. Pupils equal, round, reactive to light. Mucous membranes moist. Oropharynx benign. Neck: Supple. Trachea midline. Cardiovascular: Regular rate and rhythm. Lungs: Grossly clear. Abdomen: Soft, nontender. Bowel sounds were auscultated. Extremities: Moves all extremities. Neurologic: Grossly intact. Skin: No signs of jaundice. Vascular: All extremities perfused. Laboratory: None this morning as of yet. Reviewed his labs from yesterday. ASSESSMENT AND PLAN: An 78-year-old gentleman with a small-bowel obstruction. Small bowel obstruction. At this time, I think he is making some improvements but he has not had definitive return of bowel function. We will keep the nasogastric tube in place until he does have return of bowel function. cc: Kev Vogel MD
[2019-03-10] MEDS: NS + KCL 20 MEQ 1,000 ML IV SCH (18:20)
--- NOTE | 2019-03-10 19:29 | PROGRESS NOTE ---
DATE: 03/10/2019 INTERVAL HISTORY: No acute events overnight. He has not had any bowel movement and he has not been passing gas. He denies chest pain, shortness of breath, nausea, vomiting. He still has NG tube under suction. VITALS: Temperature 97.5 degrees, pulse 87, respiratory rate 18, blood pressure 129/67, saturating 95% room air. PHYSICAL EXAMINATION: Not in any acute distress. Oral cavity is moist. Air entry bilaterally equal. No wheeze, rhonchi, or crackles. S1, S2 normal. No murmur or gallop.Abdomen: Soft, nontender. No lower extremity edema. I could not appreciate any bowel sounds. INPUT/OUTPUT: NG tube had 900 mL yesterday, 600 mL so far today. LABORATORY DATA: No CBC today. BMP has a slight potassium drop of 3.4. However, he has significant irritation with IV potassium. I will monitor closely with BMP. ASSESSMENT AND PLAN: 1. Acute small bowel obstruction with previous history of colectomy for colon perforation in 2008. Continue NG tube under suction and conservative management as per Surgery's recommendation. I will appreciate recommendation regarding getting a small bowel series for diagnostic as well as therapeutic purposes. I will continue to watch his electrolytes. 2. Acute kidney injury, likely because of nausea and vomiting leading to intravascular volume depletion. Now improving. Continue intravenous fluids. 3. 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 4. Recently diagnosed Helicobacter pylori infection and left upper extremity processes, chronic Staphylococcus infection. I will resume his antibiotics. DISPOSITION: Continue to monitor patient on the floor. Plan of care discussed with him. His questions have been answered. cc: Garry Castanon MD
[2019-03-11] MEDS: PROTONIX IV SCH (06:25)
[2019-03-11] MEDS: SYNTHROID IV SCH (06:35)
[2019-03-11 07:44] LABS: BASO# 0.12 X1000 (0.0-0.2); BASO% 0.6 % (0.0-0.8); EOS# 0.25 X1000 (0.0-0.7); EOS% 1.2 % (0.0-10.0); HEMATOCRIT 53.6 % (42.0-52.0); HEMOGLOBIN 17.3 g/dL (14.0-18.0); IMM GRAN# 0.06 X1000 (0.0-0.04); IMM GRAN% 0.3 % (0.0-0.5); LYMPH# 14.22 X1000 (1.2-3.4); LYMPH% 70.1 % (20.5-51.1); MCH 31.8 PG (27-31); MCHC 32.3 g/dL (33-37); MCV 98.5 FL (81-99); MONO# 0.84 X1000 (0.11-0.59); MONO% 4.1 % (1.7-9.3); MPV 10.5 FL (7.4-10.4); NEUT% 23.7 % (42.2-75.2); PLT 166 X1000 (130-400); RBC 5.44 XMIL (4.7-6.1); RDW 14.6 % (11.5-14.5); WBC 20.29 X1000 (4.8-10.8)
[2019-03-11 08:18] LABS: AGAP 20; BUN 29 mg/dL (8-22); CHLORIDE 103 mmol/L (98-107); COSMO 293; CREATININE 0.9 mg/dL (0.7-1.2); ESTIMATED GFR > 60; GLUCOSE 66 mg/dL (70-104); MAGNESIUM 2.5 mg/dL (1.5-2.7); SODIUM 145 mmol/L (136-145); TCO2 22 mmol/L (25-35)
[2019-03-11 08:27] LABS: POTASSIUM 4.8 mmol/L (3.5-5.1)
[2019-03-11 08:31] LABS: EOS 2 % (1-10); LYMPHS 63 % (21-51); SEGS 35 % (42-75)
[2019-03-11] MEDS: HEPARIN SUBQ SCH ×2 (10:53→21:35)
[2019-03-11] MEDS: NS + KCL 20 MEQ 1,000 ML IV SCH (10:53)
--- NOTE | 2019-03-11 11:11 | GENERAL SURGERY PROGRESS NOTE ---
DATE: 03/11/2019 SUBJECTIVE: Patient seems to be doing okay, although his NG tube output is still high. He has not had a bowel movement or passed flatus but he is not complaining of tenderness. OBJECTIVE: Vital Signs: Patient is currently afebrile. Vital signs stable. General: No acute distress. HEENT: Normocephalic, atraumatic. Pupils equal, round, reactive to light. Mucous membranes moist. Oropharynx benign. Neck: Supple trachea midline. Cardiovascular: Regular rate and rhythm. Lungs: Grossly clear. Abdomen: Soft, nontender, nondistended. Some faint bowel sounds auscultated. Extremities: Moves all extremities. Neurologic: Grossly intact. Skin: No signs of jaundice. Vascular: All extremities perfused. LABORATORY: None. IMAGING: Abdominal film, none this morning. ASSESSMENT AND PLAN: An 78-year-old gentleman with a small-bowel obstruction: Small bowel obstruction. At this time, I agree with small-bowel series. We will go ahead and order it. His NG tube output is still relatively high and he has not had return of bowel function definitively. He has a very hostile abdomen, so would like to try to avoid surgical interventions. We will get a small-bowel series. We will follow up with the results. cc: Kev Vogel MD
--- NOTE | 2019-03-11 13:39 | Diag Imaging Result Doc PS360 ---
EXAM: SMALL BOWEL SERIES ONLY INDICATION: bowel obstruction TECHNIQUE: Water-soluble contrast was administered via an NG tube. Incremental radiographs were obtained in usual fashion and local contrast was seen in the colon. COMPARISON: None. FINDINGS: There are moderately distended loops of jejunum seen throughout the abdomen. Contrast comes to a point in the right lower quadrant at the 20 minute ulices endometrium is very little until the final image at five hours 30 minutes after administration. No well-defined transition point is identified, however. The patient reported having a bowel movement between the 4 hour radiograph and the 5 hour 30 minute radiograph. On the 5 hour 30 minute radiograph, contrast was seen throughout most of the colon. Also on this final image, the small bowel distention appears to have improved when compared to the earlier images. IMPRESSION: Moderately distended loops of small bowel on all of the images prior to the final image at which point contrast was seen in the colon and small bowel distention had improved. Consider partial bowel obstruction. Electronically signed by Molina Aguirre 03/11/2019 1:36 PM
[2019-03-11] MEDS ORDERED: NS + KCL 20 MEQ 1,000 ML IV SCH (17:52)
--- NOTE | 2019-03-11 20:46 | PROGRESS NOTE ---
DATE: 03/11/2019 INTERVAL HISTORY: He underwent small bowel series which had moderately distended loops of small bowel on all of the images. However, it probably acted as therapeutic and after that, he has had 4 to 5 bowel movements. They all were diarrhea. SUBJECTIVE: Mr. Sanchez feels significantly better. Denies any nausea, vomiting, abdominal pain. We discussed about improving kidney function and electrolytes. I answered all of his questions. OBJECTIVE: vital signs: Currently, temperature of 98 degrees, pulse 105, respiratory rate 17, blood pressure 130/88, saturating 100% on room air. Not in any acute distress. Oral cavity is moist. He has an NG tube. Air entry bilaterally equal. No wheeze, crackles, rhonchi. S1, S2 normal. No murmur or gallop. Abdomen: Soft, nontender. No lower extremity edema. He is alert and oriented x3. Yesterday, on my rectal examination, there was no external abnormality. He did have hemorrhoids which were not bleeding. SIGNIFICANT LABORATORY: WBC 20,000, hemoglobin 17.3, platelet of 166,000. Potassium is 4.8. His BUN is 30, creatinine of 0.8. MICROBIOLOGY: No new data. IMAGING: Small bowel x-ray series performed suggested there was movement of contrast 6-hours later and small bowel distention had improved. ASSESSMENT AND PLAN: 1. Acute small bowel obstruction with previous history of colectomy for colon perforation in 2008. Clamp NG tube and start patient on a clear liquid diet since the patient had multiple bowel movements. I will continue to watch his electrolytes, decrease the rate of intravenous fluids, follow up BMP tomorrow. 2. Acute kidney injury due to intravascular volume depletion due to nausea and vomiting on presentation. Now improved. Follow up BMP. 3. 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 Now improving. 4. Recently diagnosed Helicobacter pylori infection and left upper extremity chronic Staphylococcus infection. I will resume his antibiotics. DISPOSITION: I will continue to monitor the patient on the floor. Plan of care discussed with him. His questions have been answered. cc: Garry Castanon MD
[2019-03-11] MEDS ORDERED: LIPITOR PO SCH (21:00)
[2019-03-11] MEDS ORDERED: RIFAMPIN 300 MG PO SCH (21:00)
[2019-03-11] MEDS ORDERED: DOXYCYCLINE HYCLATE 100 MG PO SCH (21:00)
[2019-03-11] MEDS: DOXYCYCLINE PO SCH (21:35)
[2019-03-11] MEDS: RIFAMPIN PO SCH (21:35)
[2019-03-12] MEDS: PROTONIX IV SCH (07:27)
[2019-03-12 07:31] LABS: AGAP 12; BUN 26 mg/dL (8-22); CALCIUM 8.6 mg/dL (8.8-10.2); CHLORIDE 107 mmol/L (98-107); COSMO 300; CREATININE 0.9 mg/dL (0.7-1.2); ESTIMATED GFR > 60; GLUCOSE 114 mg/dL (70-104); POTASSIUM 3.7 mmol/L (3.5-5.1); SODIUM 148 mmol/L (136-145); TCO2 29 mmol/L (25-35)
[2019-03-12] MEDS: RIFAMPIN PO SCH (08:56)
[2019-03-12] MEDS: DOXYCYCLINE PO SCH (08:56)
[2019-03-12] MEDS: HEPARIN SUBQ SCH (08:57)
[2019-03-12] MEDS ORDERED: ASPIRIN PO SCH (09:00)
[2019-03-12] MEDS ORDERED: SYNTHROID PO SCH (09:00)
[2019-03-12] MEDS ORDERED: FOLIC ACID PO SCH (09:00)
[2019-03-12] MEDS ORDERED: COENZYME Q10 PO SCH (09:00)
--- NOTE | 2019-03-12 10:02 | PROGRESS NOTE ---
DATE: 03/12/2019 Mr. Long Sanchez is an 78-year-old white male admitted with small bowel obstruction which seems to have resolved with conservative treatment. His abdomen is soft. He has had flatus and bowel movements and his diet is being advanced with possible discharge later today. He has had previous abdominal surgery. He will follow up with us on an as needed basis. His heart rate is 102, blood pressure 130/80, O2 saturation is 99%, and he is afebrile. He has had a small bowel series performed on 03/11/2019, which showed contrast going all the way through the small bowel into the colon. cc: Chaya Younger MD
[2019-03-12 15:31] VITALS: BP 128/71
--- NOTE | 2019-03-13 08:06 | DISCHARGE SUMMARY ---
ADMISSION DATE: 03/07/2019 DISCHARGE DATE: 03/12/2019 DISCHARGE DISPOSITION: Home. DISCHARGE CONDITION: Hemodynamically stable. He is tolerating softer diet without any nausea, vomiting, abdominal distention. He has had multiple bowel movements. DISCHARGE DIAGNOSES: 1. Acute small-bowel obstruction. 2. Previous history of colectomy for colon perforation in 2008. 3. Acute kidney injury due to intravascular volume depletion due to nausea and vomiting. 4. Leukocytosis. OTHER DIAGNOSES: 1. History of chronic lymphoid leukemia. 2. Recently diagnosed Helicobacter pylori infection. 3. 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 4. History of chronic gastroesophageal reflux disease. CONSULTATIONS DURING HOSPITAL ADMISSION: General Surgery, Dr. Vogel. DISCHARGE MEDICATIONS: 1. Loperamide 2 mg at nighttime as needed for diarrhea. 2. Atorvastatin 80 mg at nighttime. 3. Loratadine 10 mg at nighttime. 4. Aspirin 81 mg daily. 5. Celecoxib 200 mg daily. 6. CoQ10 100 mg daily. 7. Fluconazole 200 mg every 3 days, which is his home medication. 8. Doxycycline 100 mg b.i.d. 9. Fluticasone nasal spray 2 sprays intranasal daily. 10. Fluorouracil 30 grams as directed. 11. Folic acid 1 mg daily. 12. Lotrisone cream 1 dose topical daily. 13. Magnesium 400 mg b.i.d. 14. Melatonin 10 mg daily. 15. Metronidazole 5 mg every 8 hours. 16. Omeprazole 20 mg daily. 17. Rifampin 300 mg b.i.d. 18. Levothyroxine 50 mcg daily. 19. Ascorbic acid 1000 mg daily. PHYSICAL EXAMINATION: Vital Signs: At the time of discharge, temperature of 98 degrees, pulse 102, respiratory rate 12, blood pressure 130/80, saturating 99% room air. General: Not in acute distress. HEENT: Oral cavity is moist. Lungs: Air entry bilaterally equal. No wheeze, rhonchi, crackles. Cardiovascular: S1, S2 normal. No murmur or gallop. Abdomen: Soft, nontender. Extremities: No lower extremity edema. Neurologic: He was alert and oriented x3. SIGNIFICANT LABORATORY DATA DURING HOSPITAL ADMISSION AND DISCHARGE: WBC was 35,000 on presentation, which improved to 20,000 at the time of discharge. Hemoglobin 17.3, platelets 166,000. Sodium 148, potassium of 3.7, BUN 26, creatinine 0.9, calcium 8.6. MICROBIOLOGY: Blood culture and urine culture did not have any growth. IMAGING DURING HOSPITAL ADMISSION: 1. Abdomen and pelvis CT on 03/07/2019 had high-grade small-bowel obstruction, likely in the pelvis, abnormal position of small bowel looks in the lateral left abdomen with suspicion of internal hernia, small nonspecific left adrenal gland nodule of doubtful significance. 2. Chest x-ray on admission did not have an acute cardiopulmonary process. He underwent small- bowel x-ray on 03/11/2019 in which he was detected to have moderately distended loops of bowel on all of the images prior to the final images, which was taken after 5 hours 30 minutes, at which time the contrast had percolated to the colon, and small-bowel distention was improved. HOSPITAL COURSE SUMMARY: Mr. Sanchez is an 78-year-old man who initially presented on 03/07/2019 with chief complaints of abdominal pain, constipation, and vomiting. His abdominal pain had initially began a week ago, and he had seen his regular physician, where he was diagnosed with Helicobacter pylori, so he was provided some antibiotics and sent home. However, 3 days prior to current presentation, he had started experiencing vomiting. He has had constipation and had to use enema with minimal output within 3 days prior to presentation. He also lost 5 to 6 pounds of weight over a week. His symptoms were not improving, so he decided to come to the hospital. He did have prior history of colon resection in 2008 with brief colostomy because of colon rupture. In the emergency room, he was found to have profound leukocytosis with WBC of 35,000. He was tachycardic with pulse of 110. He was afebrile. CT scan of the abdomen and pelvis had detected high-grade small-bowel obstruction, so NG tube was placed under suction, and surgical team was consulted. He was started on intravenous fluid resuscitation. It took a while before he clinically improved, and after 3 days of NG tube suctioning, he did not have passage of gas or bowel movement, so a small bowel series was performed, which acted as diagnostic as well as therapeutic approach, and he had bowel movements on that, so he was started on clear liquid diet. At the time of discharge, his NG tube had been removed, and he had been tolerating softer diet without difficulty. He was advised to follow up with his regular provider, and he was discharged. 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 He agreed. He was also advised to follow up with his cancer doctor for his chronic lymphoid leukemia. TIME SPENT: More than 30 minutes of time were spent in discharging the patient. All of his questions were answered satisfactorily. cc: Garry Castanon MD
== END 2019-03-12 16:58 | disposition home or self-care (01) | DRG 389 ==
LOC: ED 09:12 → 4N 12:56 → SUATTDRO 12:56
PROVIDERS: ATTEND Internal Medicine